=== PATIENT | female | born 2000 | race Caucasian/White ===

== ENCOUNTER 2018-06-18 03:12 | Emergency (ER) | payer SELFPAY ==
--- NOTE | 2018-06-18 03:31 | Emergency Department Record ---
History of Present Illness - General Chief Complaint: Fall Injury Stated Complaint: HEAD LACERATION Time Seen by Provider: 06/18/18 03:15 Source: Patient Mode of Arrival: Ambulatory Limitations: Other (Intoxicated) - History of Present Illness Initial Comments: 18 yo female presents to ED for evaluation following a fall resulting in posterior scalp laceration. Patient denies LOC or neck pain symptoms, but has been drinking alcohol this evening. Patient denies other injury and denies health problems at her baseline other than asthma. Patient does not take anticoagulation medication at her baseline. MD Complaint: Fall Onset/Timin -: Hour(s) Fall From: Standing When Fall Occurred: 1 hour [employer] Fall Witnessed: Yes, by bystander Place Fall Occurred: Home Loss of Consciousness: None Prolonged Down Time?: No Symptoms Prior to Fall: None Location: Head Severity: Moderate Context: Alcohol use - Karie Coma Scale Eye Response: (4) Open spontaneously Motor Response: (6) Obeys commands Verbal Response: (5) Oriented Karie Total: 15 - Related Data Home Medications Medication Instructions Recorded Confirmed Last Taken No Home Med [NO HOME MEDS] 06/18/18 06/18/18 Unknown Allergies Allergy/AdvReac Type Severity Reaction Status Date / Time No Known Drug Allergies Allergy Verified 06/18/18 03:25 Review of Systems Constitutional: Denies: Chills, Fever, Malaise, Night sweats Eyes: Denies: Eye discharge, Eye pain ENT: Denies: Congestion, Ear pain, Epistaxis Respiratory: Denies: Cough, Dyspnea Cardiovascular: Denies: Chest pain, Dyspnea on exertion Endocrine: Denies: Fatigue, Heat or cold intolerance Gastrointestinal: Denies: Abdominal pain, Nausea, Vomiting Genitourinary: Denies: Incontinence, Retention Musculoskeletal: Denies: Arthralgia, Back pain, Gout, Joint swelling Skin: Reports: Other (scalp laceration). Denies: Bruising, Change in color Neurological: Denies: Abnormal gait, Confusion, Headache, Seizure Psychiatric: Denies: Anxiety Hematological/Lymphatic: Denies: Anemia, Blood Clots Physical Exam - General General Appearance: Alert, Oriented x3, Cooperative, Other (Clinically intoxicated on examination, answers questions appropriately on examination.) Limitations: No limitations - Head Head exam: Other (1.5 cm left posterior scalp laceration present, bleeding controlled.) Head exam detail: Laceration. negative: Abrasion, Contusion, General tenderness , Hematoma - Eye Eye exam: Conjunctival injection. negative: Periorbital swelling, Periorbital tenderness, Scleral icterus - ENT Ear exam: negative: Auricular hematoma, Auricular trauma Nasal Exam: negative: Active bleeding, Discharge, Dried blood, Foreign body Mouth exam: negative: Drooling, Laceration, Muffled voice, Tongue elevation - Neck Neck exam: Normal inspection. negative: Meningismus, Tenderness - Respiratory Respiratory exam: Normal lung sounds bilaterally. negative: Rales, Respiratory distress, Rhonchi, Stridor - Cardiovascular Cardiovascular Exam: Regular rate, Normal rhythm, Normal heart sounds - GI/Abdominal GI/Abdominal exam: Soft. negative: Rebound, Rigid, Tenderness - Rectal Rectal exam: Deferred - exam: Deferred - Extremities Extremities exam: Normal inspection. negative: Pedal edema, Tenderness - Back Back exam: Denies: CVA tenderness (R), CVA tenderness (L) - Neurological Neurological exam: Alert, Normal gait, Oriented X3 - Psychiatric Psychiatric exam: Normal affect, Normal mood - Skin Skin exam: Normal color. negative: Abrasion Type of lesion: negative: abrasion Course Vital Signs 06/18/18 03:20 Temperature 98.4 F Pulse Rate [ 109 H Pulse Ox Probe] Respiratory 24 Rate Blood Pressure 115/85 [Left Arm] Pulse Ox 99 - Reevaluation(s) Reevaluation #1: 06/18/18 03:30 Patient was seen and examined. Discussed wound closure with scalp berna, patient declines at this time. Will consent to imaging of the head/neck at this time however as the patient is intoxicated. Reevaluation #2: 06/18/18 04:44 CT Brain: No acute process CT Cervical Spine: No acute traumatic injury. Patient and her SO were updated on all results, patient continues to decline laceration repair. Patient appears stable for discharge at this time. Disposition Disposition: Discharge Clinical Impression: Fall Qualifiers: Encounter type: initial encounter Qualified Code(s): W19.XXXA - Unspecified fall, initial encounter Scalp laceration Qualifiers: Encounter type: initial encounter Qualified Code(s): S01.01XA - Laceration without foreign body of scalp, initial encounter Disposition: Home, Self-Care Condition: (2) Stable Instructions: Head Injury (ED) Additional Instructions: Return to ED if your symptoms worsen or if you have any concerns. Follow-up with your family doctor in 3-5 days as directed. Forms: Patient Portal Access Time of Disposition: 04:45 Quality - Quality Measures Quality Measures: N/A - Blood Pressure Screening Does Patient Have Any of the Following: No Blood Pressure Classification: Pre-Hypertensive BP Reading Systolic Measurement: 115 Diastolic Measurement: 85 Screening for High Blood Pressure: < Pre-Hypertensive BP, F/U Documented > [ [id number]] Pre-Hypertensive Follow-up Interventions: Referral to alternative/primary care provider.
--- NOTE | 2018-06-20 09:03 | CT SCAN REPORT ---
EXAM: NONCONTRAST CT OF THE CERVICAL SPINE HISTORY: FELL OFF OF A BAR STOOL WITH LEFT SIDED SCALP LACERATION. TECHNIQUE: Noncontrast CT of the cervical spine was obtained. Comparison: None. FINDINGS: No acute fracture detected. No dislocation seen. No significant degenerative changes. The prevertebral soft tissues are within normal limits. The visualized lung apices are clear. IMPRESSION: NO EVIDENCE OF ACUTE CERVICAL SPINE FRACTURE OR DISLOCATION. JOB NUMBER: [id number] MTDD
--- NOTE | 2018-06-20 09:07 | CT SCAN REPORT ---
EXAM: NONCONTRAST CT OF THE HEAD HISTORY: FELL OFF OF BAR STOOL, LEFT SCALP LACERATION. TECHNIQUE: Noncontrast CT of the head was obtained. Comparison: None. FINDINGS: No midline shift, mass effect, or abnormal intra or extraaxial fluid collection. No cerebral edema, focal mass or intracranial hemorrhage detected. The winston white interface appears preserved. The ventricle sizes are within normal limits. The basal cisterns do not appear effaced. No evidence of a displaced calvarial fracture on bone window images. Subtle soft tissue irregularity in the left parietal scalp region compatible with history of laceration. Tiny polyps or retention cysts in the bilateral maxillary sinus. IMPRESSION: NO ACUTE INTRACRANIAL FINDINGS. LIKELY LEFT PARIETAL SCALP LACERATION. JOB NUMBER: [id number] MTDD
== END 2018-06-18 04:52 | disposition home or self-care (01) ==
LOC: ER 03:12
DX: S01.01XA Laceration without foreign body of scalp, initial encounter (principal); W07.XXXA Fall from chair, initial encounter; Y92.009 Unspecified place in unspecified non-institutional (private) residence as the place of occurrence of the external cause
CPT/HCPCS: 12001; 70450; 72125; 99283; 99284